=== PATIENT | male | born 1995 | race Caucasian/White ===

== ENCOUNTER 2021-05-23 04:46 | Emergency (ER) | payer OTHER, SELFPAY ==
[2021-05-23 04:47] VITALS: BP 156/90; PULSE 104; RESP 20; TEMP 36.7; O2SAT 97; BMI 20.5
[2021-05-23] MEDS: 0.9% Normal Saline 1,000 ML 999 ML IV ×2 (05:00→05:51)
--- NOTE | 2021-05-23 05:03 | EX.ED.DYSGE1 ---
HPI History of Present Illness Chief Complaint: ETOH Intox Narrative Narrative: Patient is a 26-year-old male who states he is currently dealing with domestic issues which has led to depression which he takes medication for. He states last night he drank too much and awoke this morning with generalized abdominal discomfort mild anxiety and headache. He states that he is feeling dehydrated and looking to sober up and secondary to this comes to the hospital for evaluation. He denies any homicidal or suicidal ideation [facility] Medical History ADD (attention deficit disorder) Home Medications clonazepam [Klonopin] 0.5 mg PO DAILY 05/23/21 [History Last Taken Unknown] dextroamphetamine-amphetamine [Adderall] 10 mg PO DAILY 05/23/21 [History Last Taken Unknown] fluoxetine [Prozac] 20 mg PO DAILY 05/23/21 [History Last Taken Unknown] Allergy/AdvReac Type Severity Reaction Status Date / Time No Known Allergies Allergy Verified 05/23/21 04:49 Social History Smoking Status: Light Smoker (<10/day) [facility] ED Constitutional Constitutional ED: Denies chills or fever(s) ENT ENT ED: Denies sore throat Cardiovascular Cardiovascular: Denies chest pain Respiratory/Chest Respiratory/Chest: Denies cough or dyspnea Gastrointestinal Gastrointestinal: Reports nausea; Denies abdominal pain, diarrhea or vomiting Genitourinary Genitourinary ED: Denies dysuria Musculoskeletal Musculoskeletal: Reports myalgias Integumentary Denies rash Neurologic Neurologic: Reports headache(s) Psychiatric Psychiatric: Reports depression; Denies suicidal ideation or suicidal thoughts Hematologic/Lymphatic Hematologic/Lymphatic: Denies easy bleeding or easy bruising EXAM Physical Exam Const Vital Signs: 05/23/21 04:47 Temperature 98.0 F Temperature Source Oral Pulse Rate 104 H Respiratory Rate 20 H Blood Pressure 156/90 H Blood Pressure Mean 112 Pulse Ox 97 Positive well nourished and well developed General Appearance ED: well developed HEENT Reports dry mucous membranes Mouth ED: Yes dry mucous membranes Mouth: dry mucous membranes Eyes PERRL and EOMs intact bilaterally Neck supple Resp normal respiratory effort and clear to auscultation bilaterally Cardio regular rate and regular rhythm GI normal to inspection, nondistended, normoactive bowel sounds, non-tender, non-distended and no masses Auscultation: normoactive bowel sounds Palpation: soft Extremity normal to inspection Neuro oriented x3 and CN's II-XII intact bilaterally Sensorium / Orientation: alert Motor Exam: strength 5/5 throughout Psych Psych Narrative: No homicidal or suicidal ideation Mood & Affect: depressed Skin no rashes or lesions noted MDM MDM MDM Narrative Medical decision making narrative: Patient presented to the ER in no acute distress and was clinically sober. His history and exam is consistent with dehydration from alcohol intoxication. Therefore he was given 2 L of fluid as well as Zofran Protonix and Toradol. On reevaluation he reports feeling better and his abdomen remains soft and nonsurgical. Once again he was asked about potential homicidal/suicidal ideation because of his depression history and he denies this once again. Therefore at this time patient's been rehydrated his symptoms controlled his abdomen remains soft and nonsurgical and he has had no report of homicidal or suicidal ideation is therefore safe for discharge. Discharge Plan Triage Chief Complaint: ETOH Intox ED Provider: Tono Loyola Dx/Rx/DC Orders Clinical Impression: Alcohol intoxication Instructions: ED Overdose Alcohol, ED Alcohol Intoxication Prescriptions: No Action dextroamphetamine-amphetamine [Adderall] 10 mg Tablet 10 mg PO DAILY RF: 0 clonazepam [Klonopin] 0.5 mg Tablet 0.5 mg PO DAILY RF: 0 fluoxetine [Prozac] 20 mg Capsule 20 mg PO DAILY RF: 0 Referrals: COLT RAMOS [Other] Disposition Disposition: Home, Self Care
[2021-05-23] MEDS: Ketorolac 30 MG/ML Syringe IV (05:12)
[2021-05-23 07:20] VITALS: BP 107/62; PULSE 71; RESP 15; O2SAT 98
== END 2021-05-23 07:22 | disposition home or self-care (01) ==
PROVIDERS: Emergency Provider Emergency Medicine; Visit Provider Emergency Medicine
DX: F10.129 Alcohol abuse with intoxication, unspecified (principal); R10.84 Generalized abdominal pain; F17.200 Nicotine dependence, unspecified, uncomplicated; F32.A Depression, unspecified; F41.9 Anxiety disorder, unspecified; F98.8 Other specified behavioral and emotional disorders with onset usually occurring in childhood and adolescence; Z79.899 Other long term (current) drug therapy
CPT/HCPCS: 96361; 96365; 96375; 99282; J7030; A4216

== ENCOUNTER 2021-06-04 20:22 | Inpatient (IN) | payer OTHER, SELFPAY ==
[2021-06-04 20:23] VITALS: BP 147/103; PULSE 91; RESP 16; TEMP 36.8; O2SAT 96; BMI 19.6
--- NOTE | 2021-06-04 20:57 | HP.PCM.HOS_ITS ---
HPI - General General Date of Admission: 06/04/21 Date of Service: 06/04/21 Chief Complaint: Acute EtOH Withdrawal HPI Narrative The patient is a 26 y/o M w/ PMHx: ADD, Tobacco use, Anxiety and Depression with chronic klonopin use, Hx Methamphetamine usage clean x 2 years, EtOH abuse who presents to the [facility] on 06/04/21 w/ noted acute EtOH withdrawal, onset starting early afternoon on day of presentation following last EtOH intake early in the morning normally taking in at least 20-30 shots of fireball throughout the day with onset of nausea, tremors, agitation, tactile disturbances. Patient interested in attaining sober status. He notes that he started drinking heavily the past February secondary to divorce proceedings starting with his spouse. He does report having children as well. Work-up in the ED included T 98.3, heart r ate 91, BP 147/103, respiratory rate 16, 96% on room air, CBC with WC 6.2, hemoglobin 15.6, platelet 298 without marked shift CMP pending per ED physician, urine drug screen pending upon requested evaluation of patient, ethyl alcohol level 40. [facility] Medical History ADD (attention deficit disorder) Alcohol abuse Anxiety and depression History of methamphetamine use Tobacco use Home Medications clonazepam [Klonopin] 0.5 mg PO DAILY 05/23/21 [History Last Taken Unknown] dextroamphetamine-amphetamine [Adderall] 10 mg PO DAILY 05/23/21 [History Last Taken Unknown] fluoxetine [Prozac] 20 mg PO DAILY 05/23/21 [History Last Taken Unknown] Allergy/AdvReac Type Severity Reaction Status Date / Time No Known Allergies Allergy Verified 05/23/21 04:49 Family History (Updated 06/04/21 @ 21:[address] Giovana Lara MD) Mother Diabetes Heart disease Father Diabetes Heart disease Lung cancer Lung CA with tobacco use history. Surgical History (Updated 06/04/21 @ 21:[address] Giovana Lara MD) No history of previous surgery Social History (Updated 06/04/21 @ 21:[address] Giovana Lara MD) household members: none Smoking Status: Current every day smoker tobacco type: cigarettes Smoking packs per day: 0.5 Smoking cigarettes per day: 10.0 alcohol intake: current alcohol intake frequency: 3 or more drinks per day details: 15-20 shots fireball daily. substance use type: former substance user Date of last use: Prior methamphetamine usage, clean x 2 years. ROS ROS Narrative Admission Review of Systems: CONSTITUTIONAL: No weight loss, fever, chills, + weakness or fatigue. HEENT: Eyes: No visual loss, blurred vision, double vision or yellow sclerae. Ears, Nose, Throat: No hearing loss, sneezing, congestion, runny nose or sore throat. SKIN: No rash or itching, lesions, wounds. CARDIOVASCULAR: No chest pain, chest pressure or chest discomfort, palpitations, edema, orthopnea, syncopal events. RESPIRATORY: No shortness of breath, cough or sputum, wheezing, hemoptysis. GASTROINTESTINAL: + anorexia, nausea without vomiting, No diarrhea, abdominal pain, melena, BRBPR. GENITOURINARY: No dysuria, frequency, urgency or retention. NEUROLOGICAL: + Mild tremors, No headache, dizziness, syncope, paralysis, ataxia, numbness or tingling in the extremities, focal weakness, change in bowel or bladder control, seizure. MUSCULOSKELETAL: + muscle, back pain, joint pain or stiffness. HEMATOLOGIC: No anemia, bleeding or bruising. LYMPHATICS: No enlarged nodes. No history of splenectomy. PSYCHIATRIC: + history of depression or anxiety. ENDOCRINOLOGIC: No reports of sweating, cold or heat intolerance. No polyuria or polydipsia. ALLERGIES: No history of asthma, hives, eczema or rhinitis. Vital Signs Vital Signs Vital Signs: 06/04/21 20:23 Temperature 98.3 F Temperature Source Temporal Pulse Rate 91 Respiratory Rate 16 Blood Pressure 147/103 H Blood Pressure Mean 117 Pulse Ox 96 Oxygen Delivery Method Room Air Weight Weight: 145 lb Body Mass Index (BMI) 19.6 Physical Exam Narrative Physical Examination: General: Awake, alert, oriented x 3 and cooperative, seated upright in the ED bed, fatigued appearing, mild tremors noted. Skin: Normal color, normal turgor, no icterus, no cyanosis. HEENT: AT/NC, EOMI, PERRLA, moderately dry MM, no carotid bruits or JVD noted. Lungs: Diminished, greater bases, appropriate effort, no rales, ronchi or wheezing. Heart: Mildly tachycardic with regular rhythm; no gallop, rub audible. Abdomen: Soft, NTTP, ND, mildly hyperactive BS, no obvious evidence of HSM. Extremities: No cyanosis, clubbing, or edema. Neurological: Patient awake, alert, oriented as noted, cognitive function intact; pupils equally reactive to light and accommodation, cranial nerves II- XII grossly normal, moving all 4 extremities, no focal deficits, strength mildly global decrease in [place] to acute presentation, mild tremors evident. Psychiatric: Affect appears flat, fatigued appearing, no acute evidence of depressive or anxiety feelings but underlying significant history. Results Lab / Micro Data Result Diagrams: 06/04/21 21:02 06/04/21 21:02 Assessment & Plan Assessment/Plan (1) Alcohol withdrawal: QUALIFIERS: Complication of substance-induced condition: uncomplicated Qualified Code(s): F10.230 - Alcohol dependence with withdrawal, uncomplicated PLAN: The patient is a 26 y/o M w/ PMHx: ADD, Tobacco use, Anxiety and Depression with chronic klonopin use, Hx Methamphetamine usage clean x 2 years, EtOH abuse who presents to the [facility] on 06/04/21 w/ noted acute EtOH withdrawal, onset starting early afternoon on day of presentation following last EtOH intake early in the morning. #1. Acute EtOH Withdrawal: Will admit to [facility], routine labs obtained in the ED upon presentation and pending upon evaluation. Given interest in sobriety, will initiate and continue on protocol with taper course of Phenobarbital, scheduled gabapentin for seizure prophylaxis, as needed Catapres, Bentyl, Vistaril, IV fluids, IV antiemetics, Tylenol as needed for pain. Will consult Case management for assistance for transition to next level of rehabilitation care. Mag, phos pending. Maintain on CIWA protocol concurrently. #2. Elevated BP without hypertensive diagnosis: Elevated BP upon ED presentation, likely secondary to #1, continue to closely monitor, as needed IV hydralazine in interim. #3. History of prior methamphetamine usage: Clean for least 2 years, encourage continued clean status. #4. Anxiety and depression, ADD: We will continue patient home Adderall, Prozac and low-dose daily Klonopin regimen as intention is to have him on phenobarbital as noted above. #5. Tobacco Abuse: Encouraged cessation, inpatient consultation per RT, NR if desired. #6. DVT prophylaxis: Low risk, encourage ambulation. Charges/Coding Visit Charges Inpatient E&M: 45740 Init Hosp L2
[2021-06-04 21:38] LABS: Absolute Lymphocyte Count 1.81 X10^3/uL (0.83-4.51); Absolute Neutrophil Count 3.7 X10^3/uL (2.0-7.7); Basophil# 0.02 X10^3/uL; Basophil% 0.3 % (0-1); Eosinophil# 0.07 X10^3/uL; Eosinophils% 1.1 % (0-5); Hematocrit 44.5 % (40-54); Hemoglobin 15.6 g/dL (13.0-16.5); Lymphocyte # 1.81 X10^3/ul (0.83-4.51); Lymphocyte % 29.3 % (19-41); Mean Corp Hgb Conc 35.1 g/dL (32-36); Mean Corpuscular Volume 91.2 fL (80-94); Mean Platelet Vol. 9.9 fl (6.2-12.0); Monocyte# 0.61 X10^3/uL; Monocyte% 9.9 % (0-10); NRBC Flagged by Analyzer 0 % (0-5); Neutrophil # 3.65 X10^3/uL (2.7-7.7); Neutrophil % 59.2 % (47-70); Platelet Count 298 K/mm3 (150-450); RBC Distribution Width CV 13.6 % (11.6-14.6); Red Blood Count 4.88 M/mm3 (4.6-6.2); White Blood Count 6.2 K/mm3 (4.4-11.0)
[2021-06-04 22:00] LABS: ALB/GLOB Ratio 1.2 RATIO (0.9-2.4); AST(SGOT) 21 U/L (15-37); Alanine Aminotransfer ALT/SGPT 36 U/L (16-61); Albumin, Serum 4.1 g/dL (3.2-5.0); Alkaline Phosphatase 69 U/L (45-117); Anion Gap 7 (5-15); BUN 12 mg/dL (7-18); BUN/Creat Ratio 13.5 RATIO (10-20); Calcium,Total 8.9 mg/dL (8.5-10.1); Chloride 106 mmol/L (98-107); Creatinine, Serum 0.89 mg/dL (0.70-1.30); EST Glomerular Filtration Rate 110 mL/min (>60); Est Glom Filt Rate - Afr Amer 133 mL/min (>60); Estimated Creatinine Clearance 117.01 ml/min; Globulin 3.4 g/dL (2.2-4.2); Glucose 85 mg/dL (74-106); Potassium 4.4 mmol/L (3.5-5.1); Protein, Total 7.5 g/dL (6.4-8.2); Sodium Level 140 mmol/L (136-145)
[2021-06-04 22:02] LABS: Amphetamine Urine VISTA NEGATIVE (<1000 ng/mL); Barbiturate Urine VISTA NEGATIVE (< 200 ng/mL); Benzodiazepine Urine VISTA NEGATIVE (< 200 ng/mL); Cocaine Urine VISTA NEGATIVE (< 300 ng/mL); Ecstacy Urine VISTA NEGATIVE (< 500 ng/mL); Methadone Urine VISTA NEGATIVE (< 300 ng/mL); PCP Urine VISTA NEGATIVE (< 25 ng/mL); THC Urine VISTA NEGATIVE (< 50 ng/mL)
[2021-06-04 22:04] LABS: Vista UDS pH Range 6
--- NOTE | 2021-06-04 22:07 | CM.ED ---
Social Work Telephone call to [facility]. Updated on patient admission to [facility] program. Shereen Rivas MSW, CHRISTY
[2021-06-04 22:44] VITALS: BP 163/114; PULSE 90; RESP 16; TEMP 36.8; O2SAT 97
[2021-06-04 23:00] VITALS: BMI 20.2
[2021-06-04 23:11] VITALS: BP 146/90; PULSE 73; RESP 18; TEMP 37; O2SAT 97
[2021-06-04] MEDS: Phenobarbital 32.4 MG Tablet 64.8 MG PO (23:28)
[2021-06-04] MEDS: Dicyclomine 10 MG Capsule 20 MG PO (23:31)
[2021-06-04] MEDS: hydrOXYzine PAM 25 MG Capsule 50 MG PO (23:31)
[2021-06-04] MEDS: Ondansetron 8 MG Tablet PO (23:31)
[2021-06-04] MEDS: traZODone 100 MG Tablet PO (23:32)
[2021-06-05] MEDS: Gabapentin 300 MG Capsule PO (00:31)
--- NOTE | 2021-06-05 00:33 | EDS_ITS ---
HPI History of Present Illness Chief Complaint: Substance Abuse Informant: patient Onset/Context/Timing Onset: Today Context: Gradual Onset Timing: Continuous Quality: Anxiety Location: Generalized Worsened by: Nothing Relieved by: Nothing Associated Symptoms Associated Symptoms: Negative for vomiting*, diarrhea*, fever*, rash*, seizure, tremor, palpatations, change in mental status, suicidal ideation and homicidal ideation Narrative Narrative: Patient presents requesting detox from alcohol. Patient states he has been drinking for several months. Patient states he drinks approximately 30 drinks per day. Patient states his last drink was this morning. Patient denies any prior detox program. Patient admits to some anxiety but denies any suicidal or homicidal ideations. Patient admits to nausea but denies any vomiting. Patient denies any chest pain or shortness of breath. PFSH PFSH Medical History ADD (attention deficit disorder) Alcohol abuse Anxiety and depression History of methamphetamine use Tobacco use Home Medications clonazepam [Klonopin] 0.5 mg PO DAILY 05/23/21 [History Last Taken 06/02/21] dextroamphetamine-amphetamine [Adderall] 10 mg PO DAILY 05/23/21 [History Last Taken Unknown] fluoxetine [Prozac] 20 mg PO DAILY 05/23/21 [History Last Taken 06/02/21] Allergy/AdvReac Type Severity Reaction Status Date / Time No Known Allergies Allergy Verified 05/23/21 04:49 Family History (Updated 06/04/21 @ 21:[address] Giovana Lara MD) Mother Diabetes Heart disease Father Diabetes Heart disease Lung cancer Lung CA with tobacco use history. Surgical History No history of previous surgery no surgical history Social History household members: none Smoking Status: Current every day smoker tobacco type: cigarettes Smoking packs per day: 0.5 Smoking cigarettes per day: 10.0 alcohol intake: current alcohol intake frequency: 3 or more drinks per day details: 15-20 shots fireball daily. substance use type: former substance user Date of last use: Prior methamphetamine usage, clean x 2 years. ROS ROS ED Constitutional Constitutional ED: Denies chills or fever(s) Eyes Eyes: Denies blurry vision or change in vision ENT ENT ED: Denies rhinorrhea or sore throat Cardiovascular Cardiovascular: Denies chest pain or palpitations Respiratory/Chest Respiratory/Chest: Denies cough or dyspnea Gastrointestinal Gastrointestinal: Reports nausea; Denies diarrhea or vomiting Genitourinary Genitourinary ED: Denies dysuria or hematuria Musculoskeletal Musculoskeletal: Denies back pain or neck pain Integumentary Denies abscess or rash Neurologic Neurologic: Reports headache(s); Denies weakness Psychiatric Psychiatric: Reports anxiety; Denies suicidal ideation or suicidal thoughts Allergic/Immunologic Allergic/Immunologic ED: Denies mouth swelling or urticaria EXAM Physical Exam Const Vital Signs: 06/04/21 20:23 Temperature 98.3 F Temperature Source Temporal Pulse Rate 91 Respiratory Rate 16 Blood Pressure 147/103 H Blood Pressure Mean 117 Pulse Ox 96 Oxygen Delivery Method Room Air Positive well nourished and well developed General Appearance ED: well developed HEENT Reports moist mucous membranes Neck supple and no JVD Resp normal respiratory effort and clear to auscultation bilaterally Cardio regular rate, regular rhythm and no murmurs GI normal to inspection, nondistended, normoactive bowel sounds and non-tender Palpation: soft Extremity normal to inspection General Extremety ED: Negative for edema or tenderness General Extremity: Negative for edema Neuro oriented x3, CN's II-XII intact bilaterally and no sensory deficits noted Sensorium / Orientation: alert Motor Exam: strength 5/5 throughout Psych mental status grossly normal Skin no rashes or lesions noted MDM MDM MDM Narrative Medical decision making narrative: CBC was within normal limits. Comprehensive metabolic profile was within normal limits. Serum alcohol level was 40. Urine tox screen was ordered and is pending. Case was discussed with the hospitalist. She will admit the patient to her service. Patient understood and was agreeable with the plan. All questions were answered. Lab Data Attestation: I reviewed the patient's lab results. Labs: Laboratory Results - last 24 hr 06/04/21 06/04/21 06/04/21 21:02 21:02 21:02 WBC 6.2 RBC 4.88 Hgb 15.6 Hct 44.5 MCV 91.2 MCH 32.0 MCHC 35.1 RDW Std Deviation 46.0 H RDW Coeff of Mariam 13.6 Plt Count 298 MPV 9.9 Immature Gran % (Auto) 0.200 Neut % (Auto) 59.2 Lymph % (Auto) 29.3 [place] % (Auto) 9.9 Eos % (Auto) 1.1 Baso % (Auto) 0.3 Absolute Neuts (auto) 3.7 Absolute Lymphs (auto) 1.81 Nucleated RBC % 0 Sodium 140 Potassium 4.4 Chloride 106 Carbon Dioxide 27.0 Anion Gap 7 BUN 12 Creatinine 0.89 Estim Creat Clear Calc 117.01 Est GFR (MDRD) Af Amer 133 Est GFR (MDRD) Non-Af 110 BUN/Creatinine Ratio 13.5 Glucose 85 Calcium 8.9 Phosphorus 4.0 Magnesium Cancelled Total Bilirubin 0.40 AST 21 ALT 36 Alkaline Phosphatase 69 Total Protein 7.5 Albumin 4.1 Globulin 3.4 Albumin/Globulin Ratio 1.2 Ethyl Alcohol 06/04/21 21:02 WBC RBC Hgb Hct MCV MCH MCHC RDW Std Deviation RDW Coeff of Mariam Plt Count MPV Immature Gran % (Auto) Neut % (Auto) Lymph % (Auto) [place] % (Auto) Eos % (Auto) Baso % (Auto) Absolute Neuts (auto) Absolute Lymphs (auto) Nucleated RBC % Sodium Potassium Chloride Carbon Dioxide Anion Gap BUN Creatinine Estim Creat Clear Calc Est GFR (MDRD) Af Amer Est GFR (MDRD) Non-Af BUN/Creatinine Ratio Glucose Calcium Phosphorus Magnesium Total Bilirubin AST ALT Alkaline Phosphatase Total Protein Albumin Globulin Albumin/Globulin Ratio Ethyl Alcohol 40.0 Treatment and Re-Evaluation Vital Sign Attestation:: Vital signs were reviewed prior to admission. They are stable. Discharge Plan Dx/Rx/DC Orders Clinical Impression: Alcohol withdrawal Disposition Disposition: Acute Care Hospital [facility] Discharge Date/Time: 06/04/21 22:46
[2021-06-05 03:59] VITALS: BP 126/76; PULSE 75; RESP 18; TEMP 36.4; O2SAT 98
[2021-06-05] MEDS: Phenobarbital 32.4 MG Tablet 64.8 MG PO ×6 (04:02→23:35)
[2021-06-05] MEDS: hydrOXYzine PAM 25 MG Capsule 50 MG PO (04:02)
[2021-06-05 07:28] VITALS: BP 123/69; PULSE 84; RESP 16; TEMP 36.7; O2SAT 97
[2021-06-05] MEDS: Folic Acid 1 MG Tablet PO (07:44)
[2021-06-05] MEDS: Thiamine Hydrochloride 100 MG Tablet PO (07:44)
[2021-06-05] MEDS: FLUoxetine 20 MG Capsule PO (10:46)
--- NOTE | 2021-06-05 11:53 | PN.HOSP_ITS ---
Subjective Subjective Patient reports he is feeling much better than he did upon presentation. He is currently asymptomatic without any nausea or vomiting, tremor, or diarrhea or myalgias. He indicates he has appointment that he needs to get to on Monday and I encouraged him to talk to addiction medicine today so we could set up a plan for discharge and get him out of the hospital if he is feeling well on Monday morning. Objective Data Objective Data Vital Signs: Vital Signs Temp Pulse Resp BP Pulse Ox 98.1 F 84 16 123/69 H 97 06/05/21 07:28 06/05/21 07:28 06/05/21 07:28 06/05/21 07:28 06/05/21 07:28 Oxygen Delivery Method Room Air Weight: 65.771 kg Body Mass Index (BMI) 20.2 Lab / Micro Data Result Diagrams: 06/04/21 21:02 06/04/21 21:02 Labs: Laboratory Results - last 24 hr 06/04/21 21:02: Phosphorus 4.0, Magnesium Cancelled 06/04/21 21:02: WBC 6.2, RBC 4.88, Hgb 15.6, Hct 44.5, MCV 91.2, MCH 32.0, MCHC 35.1, RDW Std Deviation 46.0 H, RDW Coeff of Mariam 13.6, Plt Count 298, MPV 9.9, Immature Gran % (Auto) 0.200, Neut % (Auto) 59.2, Lymph % (Auto) 29.3, [place] % (Auto) 9.9, Eos % (Auto) 1.1, Baso % (Auto) 0.3, Absolute Neuts (auto) 3.7, Absolute Lymphs (auto) 1.81, Nucleated RBC % 0 06/04/21 21:02: Sodium 140, Potassium 4.4, Chloride 106, Carbon Dioxide 27.0, Anion Gap 7, BUN 12, Creatinine 0.89, Estim Creat Clear Calc 117.01, Est GFR (MDRD) Af Amer 133, Est GFR (MDRD) Non-Af 110, BUN/Creatinine Ratio 13.5, Glucose 85, Calcium 8.9, Total Bilirubin 0.40, AST 21, ALT 36, Alkaline Phosphatase 69, Total Protein 7.5, Albumin 4.1, Globulin 3.4, Albumin/Globulin Ratio 1.2 06/04/21 21:02: Ethyl Alcohol 40.0 06/04/21 21:40: Urine Opiates Screen NEGATIVE, Urine Methadone Screen NEGATIVE, Ur Barbiturates Screen NEGATIVE, Ur Phencyclidine Scrn NEGATIVE, Ur Amphetamines Screen NEGATIVE, U Methamphetamin-MDMA NEGATIVE, U Benzodiazepines Scrn NEGATIVE, Urine Cocaine Screen NEGATIVE, U Cannabinoids Screen NEGATIVE, Ur Drug Screen Comment Physical Exam Const alert, oriented x3, no apparent distress, average body habitus, healthy appearing and well nourished Constitutional Narrative: Young white male lying in bed, appears comfortable nontoxic, watching television Exam Limitations: no limitations HEENT head/scalp atraumatic and moist oral mucous membranes Head and Scalp: normocephalic Resp normal respiratory effort, no retractions, no use of accessory muscles and clear to auscultation bilaterally Auscultation: Negative for crackles, rales, rhonchi or wheezes Cardio regular rate, regular rhythm, S1 normal heart sound, S2 normal heart sound, no murmurs, no rub, no gallops, no clicks and no JVD GI normal to inspection, nondistended, normoactive bowel sounds, soft to palpation, non-tender and non-distended; Negative for hepatosplenomegaly Extremity no clubbing, cyanosis or edema Peripheral Pulses: Yes pulses 2+ throughout Neuro oriented x3, CN's II-XII intact bilaterally, moves all extremities and no focal motor deficits Sensorium / Orientation: awake and alert Speech: speech normal Psych affect normal Psych Narrative: Very pleasant and appropriate Assessment & Plan Assessment/Plan (1) Alcohol withdrawal: QUALIFIERS: Complication of substance-induced condition: uncomplicated Qualified Code(s): F10.230 - Alcohol dependence with withdrawal, uncomplicated PLAN: Acute alcohol withdrawal -Patient has been drinking 20-30 shots of fireball a day -Continue phenobarbital taper -Continue supportive medication for symptomatic treatment -Continue thiamine and folate -CIWA protocol is in place -Awaiting 180 input Elevated blood pressure -Patient without history of hypertension -Blood pressure is much better and I suspect his elevated pressures on presentation related to his alcohol withdrawal History of methamphetamine use -Patient has been sober for 2 years -Encourage continued sobriety Anxiety and depression -Continue Prozac -Continue home low-dose Klonopin ADD -Continue Adderall Tobacco abuse -Encouraged tobacco cessation -Nicotine replacement as desired DVT prophylaxis -Low risk -Ambulation protocol Charges/Coding Visit Charges Inpatient E&M: 47004 Subs Hosp L2
[2021-06-05 14:38] VITALS: BP 128/90; PULSE 78; RESP 16; TEMP 36.6; O2SAT 97
--- NOTE | 2021-06-05 18:17 | ADDICTION ---
This ad copy writer met with PT to conduct ASAM, MSE, AUDIT assessments and to plan for d/c. PT A+Ox4 and participated actively. All assessments completed, faxed to [facility] and placed in PT's chart. PT plans to f/u with individual counselor at [facility] in [place] for follow-up counseling services. PT did not indicate a need for transportation post d/c from [facility].
[2021-06-05 19:47] VITALS: BP 131/85; PULSE 73; RESP 16; TEMP 37.2; O2SAT 97
[2021-06-05 23:28] VITALS: BP 141/87; PULSE 67; RESP 16; TEMP 37; O2SAT 99
[2021-06-05] MEDS: traZODone 100 MG Tablet PO (23:35)
[2021-06-05] MEDS: Ibuprofen 600 MG Tablet PO (23:35)
[2021-06-06 03:13] VITALS: BP 115/75; PULSE 64; RESP 16; TEMP 36.4; O2SAT 99
[2021-06-06] MEDS: Phenobarbital 32.4 MG Tablet 64.8 MG PO ×6 (03:17→22:23)
[2021-06-06] MEDS: Acetaminophen 325 MG Tablet 650 MG PO ×2 (03:17→16:45)
[2021-06-06 06:35] VITALS: BP 132/84; PULSE 66; RESP 16; TEMP 36.6; O2SAT 98
[2021-06-06] MEDS: Gabapentin 300 MG Capsule PO (06:41)
[2021-06-06 08:28] LABS: MG Sendout 2.2 mg/dL (1.6-2.3)
[2021-06-06 09:14] VITALS: BP 141/90; PULSE 69; RESP 18; O2SAT 100
[2021-06-06] MEDS: FLUoxetine 20 MG Capsule PO (09:18)
[2021-06-06] MEDS: Folic Acid 1 MG Tablet PO (09:18)
[2021-06-06] MEDS: Thiamine Hydrochloride 100 MG Tablet PO (09:18)
[2021-06-06] MEDS: Ibuprofen 600 MG Tablet PO ×2 (09:26→22:23)
--- NOTE | 2021-06-06 12:56 | PN.HOSP_ITS ---
Subjective Subjective Complaining of pain in his left lower tooth/molar. States he was on penicillin approximately 2 months for infection. Has not had time yet to get it addressed. No other issues. Objective Data Objective Data Vital Signs: Vital Signs Temp Pulse Resp BP Pulse Ox 97.9 F 69 18 141/90 H 100 06/06/21 06:35 06/06/21 09:14 06/06/21 09:14 06/06/21 09:14 06/06/21 09:14 Oxygen Delivery Method Room Air Weight: 65.771 kg Body Mass Index (BMI) 20.2 Lab / Micro Data Result Diagrams: 06/04/21 21:02 06/04/21 21:02 Labs: Laboratory Results - last 24 hr 06/04/21 21:02: Magnesium 2.2 Physical Exam Const alert, oriented x3, no apparent distress, average body habitus, healthy appearing and well nourished Constitutional Narrative: Young white male lying in bed, appears comfortable nontoxic, watching television Exam Limitations: no limitations HEENT head/scalp atraumatic and moist oral mucous membranes HEENT Narrative: Infected tooth left lower jaw on last molar with tenderness laterally at the mandible Head and Scalp: normocephalic Resp normal respiratory effort, no retractions, no use of accessory muscles and clear to auscultation bilaterally Auscultation: Negative for crackles, rales, rhonchi or wheezes Cardio regular rate, regular rhythm, S1 normal heart sound, S2 normal heart sound, no murmurs, no rub, no gallops, no clicks and no JVD GI normal to inspection, nondistended, normoactive bowel sounds, soft to palpation, non-tender and non-distended; Negative for hepatosplenomegaly Extremity no clubbing, cyanosis or edema Peripheral Pulses: Yes pulses 2+ throughout Neuro oriented x3, CN's II-XII intact bilaterally, moves all extremities and no focal motor deficits Sensorium / Orientation: awake and alert Speech: speech normal Psych affect normal Psych Narrative: Very pleasant and appropriate Assessment & Plan Assessment/Plan (1) Alcohol withdrawal: QUALIFIERS: Complication of substance-induced condition: uncomplicated Qualified Code(s): F10.230 - Alcohol dependence with withdrawal, uncomplicated PLAN: Acute alcohol withdrawal -Patient has been drinking 20-30 shots of fireball a day -Patient is clinically doing very well not having any symptoms at this time -Continue phenobarbital taper -Continue supportive medication for symptomatic treatment -Continue thiamine and folate -CIWA protocol is in place -Patient was evaluated by 180 yesterday 06/05/2021 and outpatient follow-up is with an individual counselor at [facility] in [place] Left mandible dental infection -Start Augmentin 875 mg twice daily -We will plan to treat for total of 7 days Elevated blood pressure -Patient without history of hypertension -Blood pressure is much better and I suspect his elevated pressures on presentation related to his alcohol withdrawal 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
[2021-06-06] MEDS: Amox/Clavulanate 875 MG Tablet PO (15:48)
[2021-06-06 15:51] VITALS: BP 132/74; PULSE 79; RESP 18; TEMP 37.2; O2SAT 98
[2021-06-06] MEDS: DEXTROAMPHETAMINE PO (16:47)
[2021-06-06] MEDS: AMPHETAMINE PO (16:47)
[2021-06-06] MEDS: Mag Hydrox/Al Hydrox/Simeth 30 ML UDC PO (18:50)
[2021-06-06 20:00] VITALS: BP 125/77; PULSE 80; RESP 18; TEMP 36.7; O2SAT 98
[2021-06-06] MEDS: clonazePAM 0.5 MG Tablet PO (22:24)
[2021-06-06] MEDS: traZODone 100 MG Tablet PO (22:54)
[2021-06-07] MEDS: Ibuprofen 600 MG Tablet PO (05:38)
[2021-06-07] MEDS: Phenobarbital 32.4 MG Tablet 64.8 MG PO ×2 (05:38→08:50)
[2021-06-07 05:39] VITALS: BP 109/69; PULSE 73; RESP 16; TEMP 36.7; O2SAT 97
--- NOTE | 2021-06-07 07:29 | PCM.DC.SUM ---
Providers Date of Admission: 06/04/21 Primary Care Physician: COLT RAMOS Reason For Visit: ACUTE ETOH WITHDRAWL Diagnosis Discharge Diagnosis (1) Alcohol withdrawal: Status: Acute Code(s): F10.239 - Alcohol dependence with withdrawal, unspecified Qualifiers: Complication of substance-induced condition: uncomplicated Qualified Code(s): F10.230 - Alcohol dependence with withdrawal, uncomplicated Medications at Discharge Home Medications clonazepam [Klonopin] 0.5 mg PO DAILY 05/23/21 dextroamphetamine-amphetamine [Adderall] 10 mg PO DAILY 05/23/21 fluoxetine [Prozac] 20 mg PO DAILY 05/23/21 amoxicillin-pot clavulanate 1 tab PO BIDCM 6 Days #12 tab 06/07/21 Weight / BMI Weight Weight: 65.771 kg Body Mass Index (BMI) 20.2 ABG / Lab / Microbiology Data Result Diagrams: 06/04/21 21:02 06/04/21 21:02 Laboratory: Laboratory Results - last 24 hr 06/04/21 21:02: Magnesium 2.2 Meaningful Use Info Meaningful Use Diagnoses (Choose all that apply): None applicable Discharge Plan Admission Admit Date/Time: 06/04/21 21:03 Primary Reason for Your Visit: EtOH Withdrawal Attending Provider: Bianca Lee Discharge Orders/Prescriptions Prescriptions: New amoxicillin-pot clavulanate 875-125 mg Tablet 1 tab PO BIDCM 6 Days Qty: 12 RF: 0 Continued dextroamphetamine-amphetamine [Adderall] 10 mg Tablet 10 mg PO DAILY RF: 0 clonazepam [Klonopin] 0.5 mg Tablet 0.5 mg PO DAILY RF: 0 fluoxetine [Prozac] 20 mg Capsule 20 mg PO DAILY RF: 0 Referrals / Follow Up: COLT RAMOS [Other] Disposition Disposition (needs filled in before D/C Order can be placed): Home, Self Care Charges/Coding Visit Charges Inpatient E&M: 31867 Disch Hosp
[2021-06-07 08:13] VITALS: O2SAT 96
[2021-06-07] MEDS: Amox/Clavulanate 875 MG Tablet PO (08:51)
[2021-06-07] MEDS: Thiamine Hydrochloride 100 MG Tablet PO (08:51)
[2021-06-07] MEDS: Folic Acid 1 MG Tablet PO (08:51)
[2021-06-07] MEDS: FLUoxetine 20 MG Capsule PO (08:51)
[2021-06-07] MEDS: DEXTROAMPHETAMINE PO (09:03)
[2021-06-07] MEDS: AMPHETAMINE PO (09:03)
[2021-06-07 09:05] VITALS: BP 134/94; PULSE 72; RESP 16; TEMP 36.8; O2SAT 99
--- NOTE | 2021-06-07 11:49 | PCM.DC.SUM ---
Providers Date of Admission: 06/04/21 Primary Care Physician: COLT RAMOS Reason For Visit: ACUTE ETOH WITHDRAWL Diagnosis Discharge Diagnosis (1) Alcohol withdrawal: Status: Acute Code(s): F10.239 - Alcohol dependence with withdrawal, unspecified Qualifiers: Complication of substance-induced condition: uncomplicated Qualified Code(s): F10.230 - Alcohol dependence with withdrawal, uncomplicated Medications at Discharge Home Medications clonazepam [Klonopin] 0.5 mg PO DAILY 05/23/21 dextroamphetamine-amphetamine [Adderall] 10 mg PO DAILY 05/23/21 fluoxetine [Prozac] 20 mg PO DAILY 05/23/21 amoxicillin-pot clavulanate 1 tab PO BIDCM 6 Days #12 tab 06/07/21 Hospital Course Operations None Procedures None Summary of Care Provided Minutes Spent on Discharge: 36 Hospital Course: Mr. Rosen is a 26-year-old white male who presented to the emergency department was [facility] on 06/04/2021 for acute alcohol withdrawal. The patient reported on admission that his last drink was early on the morning of admission. He admitted to typically drinking 20-30 shots of fireball throughout the day. On presentation he had nausea, tremors, agitation, tactile disturbances and general malaise. The patient was interested in attaining sobriety. He stated that he started drinking heavily this past February secondary to a divorce has been undergoing with his spouse and indicates he has children as well that are involved which is increased to stress. He currently works as a truck service manager. His vital signs on admission were stable. His CBC and CMP were overall unremarkable. His drug screen was negative and his ethyl alcohol was 40 on admission. The patient was detoxed with phenobarbital taper and did very well. His symptoms were well managed with the phenobarbital and supplemental medications. During his hospitalization he complained of left tooth pain. He had jaw tenderness on exam and evidence of a left tooth caries at the most posterior molar on the left lower jaw. Patient states that he was on penicillin approximately 2 months prior to presentation but had not had the tooth taken care of as of yet. We encouraged him to follow-up with a dentist to get this addressed and he was discharged on Augmentin to complete a 7-day course. He was seen by 180 during his hospitalization and is documented that his intent for discharge follow-up was with an individual counselor at the [facility] in [place]. The patient was discharged in stable condition on 06/07/2021. Discharge diagnoses: Acute alcohol withdrawal-resolved Elevated blood pressure-resolved -Suspect related to acute withdrawal History of methamphetamine use Anxiety Depression ADD Tobacco abuse Physical Exam Const alert, oriented x3, no apparent distress, average body habitus, healthy appearing and well nourished Constitutional Narrative: Young white male lying in bed, appears comfortable nontoxic, sleeping but awakens easily, very pleasant General Appearance: cooperative, comfortable, well kempt and well developed Exam Limitations: no limitations HEENT normocephalic, head/scalp atraumatic, hearing grossly normal bilaterally and moist oral mucous membranes HEENT Narrative: Mild tenderness left jaw with with fair dentition for age but evidence of dental caries significant at the left lower molar but the most posterior Eyes PERRL, EOMs intact bilaterally and conjunctivae normal Eyes Narrative: No scleral icterus Neck no lymphadenopathy, supple and no JVD Neck Narrative: Trachea midline, no thyroid Resp normal respiratory effort, no retractions, no use of accessory muscles and clear to auscultation bilaterally Auscultation: Negative for crackles, rales, rhonchi or wheezes Cardio regular rate, regular rhythm, S1 normal heart sound, S2 normal heart sound, no murmurs, no rub, no gallops, no clicks and no JVD GI normal to inspection, nondistended, normoactive bowel sounds, soft to palpation, non-tender and non-distended; Negative for hepatosplenomegaly Extremity no clubbing, cyanosis or edema Extremity Narrative: 2+ pedal pulses Skin no rashes or lesions noted, no wounds, skin turgor normal and no jaundice Neuro oriented x3, CN's II-XII intact bilaterally, moves all extremities and no focal motor deficits Sensorium / Orientation: awake and alert Speech: speech normal Psych affect normal Psych Narrative: Very pleasant and appropriate Weight / BMI Weight Weight: 65.771 kg Body Mass Index (BMI) 20.2 ABG / Lab / Microbiology Data Result Diagrams: 06/04/21 21:02 06/04/21 21:02 D/C Instructions Discharge Diet: No restrictions Meaningful Use Info Meaningful Use Diagnoses (Choose all that apply): None applicable Discharge Plan Admission Admit Date/Time: 06/04/21 21:03 Primary Reason for Your Visit: EtOH Withdrawal Attending Provider: Bianca Lee Discharge Orders/Prescriptions Prescriptions: New amoxicillin-pot clavulanate 875-125 mg Tablet 1 tab PO BIDCM 6 Days Qty: 12 RF: 0 Continued dextroamphetamine-amphetamine [Adderall] 10 mg Tablet 10 mg PO DAILY RF: 0 clonazepam [Klonopin] 0.5 mg Tablet 0.5 mg PO DAILY RF: 0 fluoxetine [Prozac] 20 mg Capsule 20 mg PO DAILY RF: 0 Referrals / Follow Up: COLT RAMOS [Other] Disposition Disposition (needs filled in before D/C Order can be placed): Home, Self Care Charges/Coding Visit Charges Inpatient E&M: 45391 Disch Hosp
== END 2021-06-07 09:59 | disposition home or self-care (01) | DRG 897 ==
LOC: ED 21:20 → MS3 21:39
PROVIDERS: Admitting Provider Family Medicine; Emergency Provider Emergency Medicine; Visit Provider Internal Medicine
DX: F10.239 Alcohol dependence with withdrawal, unspecified (principal); F17.210 Nicotine dependence, cigarettes, uncomplicated; F41.9 Anxiety disorder, unspecified; K04.7 Periapical abscess without sinus; K02.9 Dental caries, unspecified; R03.0 Elevated blood-pressure reading, without diagnosis of hypertension; F32.A Depression, unspecified; F90.0 Attention-deficit hyperactivity disorder, predominantly inattentive type; Z79.899 Other long term (current) drug therapy; Y90.2 Blood alcohol level of 40-59 mg/100 ml
CPT/HCPCS: 80053; 80307; 82077; 83735; 84100; 85025; 99282; A4216